=== PATIENT | male | born 1980 | race Caucasian/White ===

== ENCOUNTER 2019-04-03 10:35 | Emergency (ER) | payer MEDICAID ==
--- NOTE | 2019-04-03 10:59 | ER Report ---
History and Physical Time Seen By MD: 10:53 Hx. of Stated Complaint: PATIENT REPORTS BLURRY VISION, RINGING IN THE EARS AND A HEADACHE. HAS BEEN OFF AND ON FOR A WHILE, BUT BECAME MUCH WORSE THIS MORNING HPI/ROS CHIEF COMPLAINT: Blurred vision and ringing in ears HISTORY OF PRESENT ILLNESS: This is a 38-year-old male who presents to the emergency department for blurred vision and ringing in ears. Patient states that he woke up this morning and had some blurry vision has had ringing in the ears bilaterally, also has a mild headache. No other visual disturbances. He is transient, currently backpacking around, he also states that he drank about a half gallon of vodka last night, blacked out. He does binge drink. He states he's had similar complaints before however he doesn't recall them being so intense. After further probing he did say that he may need some assistance with his alcohol consumption and withdrawals. He states he does drink on a semi- regular basis. Denies chest pain or shortness of breath. No rashes. No fevers or chills. REVIEW OF SYSTEMS: Constitutional: No fever, no chills. Eyes: As above. ENT: As above. Cardiovascular: No chest pain, no palpitations. Respiratory: No cough, no shortness of breath. Gastrointestinal: No abdominal pain, no vomiting. Genitourinary: No hematuria. Musculoskeletal: No back pain. Skin: No rashes. Neurological: As above. Allergies: Coded Allergies: No Known Drug Allergies (Unverified , 04/03/19) Past Medical/Surgical History The patient does have a past medical and surgical history of bipolar, anxiety, depression, alcohol dependence, liver disease, celiac disease. Reviewed Nurses Notes: Yes Hx Substance Use Disorder: Yes Hx Alcohol Use: Yes Constitutional Vital Sign - Last 24 Hours 04/03/19 04/03/19 04/03/19 10:38 12:23 13:25 Temp 97.9 Pulse 65 85 82 Resp 16 16 16 B/P (MAP) 131/104 142/101 (115) 132/92 (105) Pulse Ox 94 92 92 O2 Delivery Room Air Room Air Room Air Physical Exam General Appearance: The patient is alert, has no immediate need for airway protection and no signs of toxicity. Eyes: Pupils equal and round no pallor or injection. EOMs intact. No nystagmus. ENT, Mouth: Mucous membranes are moist. Respiratory: There are no retractions, lungs are clear to auscultation. Cardiovascular: Regular rate and rhythm. No murmurs, clicks or rubs. Gastrointestinal: Abdomen is soft and non tender, no masses, bowel sounds normal. Neurological: Alert and oriented 4. Moving all extremities. Following all commands. No focal neuro deficits. Skin: Warm and dry, no rashes. Musculoskeletal: Neck is supple non tender. Extremities are nontender, nonswollen and have full range of motion. DIFFERENTIAL DIAGNOSIS: After history and physical exam differential diagnosis was considered for alcohol withdrawal syndrome, tinnitus, intracranial bleed, tumor, anxiety. Medical Decision Making Data Points Result Diagram: 04/03/19 1047 04/03/19 1047 Laboratory Hematology Test 04/03/19 10:47 04/03/19 11:20 Red Blood Count 3.90 M/uL (4.00-5.60) Mean Corpuscular Volume 86.9 fL (80.0-96.0) Mean Corpuscular Hemoglobin 28.1 pg (26.0-33.0) Mean Corpuscular Hemoglobin Concent 32.3 g/dL (32.0-36.0) Red Cell Distribution Width 20.9 % (11.5-14.5) Mean Platelet Volume 7.7 fL (7.2-11.1) Neutrophils (%) (Auto) 54.0 % (39.4-72.5) Lymphocytes (%) (Auto) 29.3 % (17.6-49.6) Monocytes (%) (Auto) 14.9 % (4.1-12.4) Eosinophils (%) (Auto) 1.3 % (0.4-6.7) Basophils (%) (Auto) 0.5 % (0.3-1.4) Nucleated RBC Relative Count (auto) 0.1 /100WBC Neutrophils # (Auto) 3.1 K/uL (2.0-7.4) Lymphocytes # (Auto) 1.7 K/uL (1.3-3.6) Monocytes # (Auto) 0.9 K/uL (0.3-1.0) Eosinophils # (Auto) 0.1 K/uL (0.0-0.5) Basophils # (Auto) 0.0 K/uL (0.0-0.1) Nucleated RBC Absolute Count (auto) 0.00 K/uL Peripheral Blood Smear Y/N Sodium Level 139 mmol/L (137-145) Potassium Level 3.6 mmol/L (3.5-5.0) Chloride Level 108 mmol/L (98-107) Carbon Dioxide Level 20 mmol/L (22-30) Blood Urea Nitrogen 6 mg/dl (9-21) Creatinine 0.60 mg/dl (0.66-1.25) Glomerular Filtration Rate Calc > 60.0 Random Glucose 90 mg/dl (75-110) Calcium Level 8.0 mg/dl (8.4-10.2) Magnesium Level 1.4 mg/dl (1.7-2.2) Total Bilirubin 0.2 mg/dl (0.2-1.3) Aspartate Amino Transf (AST/SGOT) 108 U/L (0-35) Alanine Aminotransferase (ALT/SGPT) 98 U/L (0-56) Alkaline Phosphatase 114 U/L (0-126) Total Protein 7.6 g/dl (6.3-8.2) Albumin 3.7 g/dl (3.5-5.0) Salicylates Level < 10 mg/L Salicylate Last Dose Date unk Acetaminophen Level < 10 ug/ml Serum Alcohol < 10 mg/dl Urine Color Yellow Urine Clarity Clear Urine pH 5.0 pH (4.8-9.5) Urine Specific [place] 1.014 Urine Protein Negative mg/dL (NEGATIVE) Urine Glucose (UA) Negative mg/dL (NEGATIVE) Urine Ketones Negative mg/dL (NEGATIVE) Urine Blood Negative (NEGATIVE) Urine Nitrite Negative (NEGATIVE) Urine Bilirubin Negative (NEGATIVE) Urine Urobilinogen 2.0 mg/dL (0.2-1.9) Urine Leukocyte Esterase Negative (NEGATIVE) Urine RBC None /HPF (0-2/HPF) Urine WBC <1 /HPF (0-5/HPF) Urine Squamous Epithelial Cells None /LPF (</=FEW) Urine Bacteria Negative /HPF (NONE-FEW) Urine Mucus None /HPF (NONE-FEW) Urine Opiates Screen Negative Urine Barbiturates Screen Negative Ur Tricyclic Antidepressants Screen Negative Urine Phencyclidine Screen Negative Urine Amphetamines Screen Negative Urine Benzodiazepines Screen Negative Urine Cocaine Screen Negative Urine Cannabinoids Screen Negative Chemistry Test 04/03/19 10:47 04/03/19 11:20 White Blood Count 5.7 k/uL (4.5-11.0) Red Blood Count 3.90 M/uL (4.00-5.60) Hemoglobin 11.0 g/dL (14.0-18.0) Hematocrit 33.9 % (42.0-52.0) Mean Corpuscular Volume 86.9 fL (80.0-96.0) Mean Corpuscular Hemoglobin 28.1 pg (26.0-33.0) Mean Corpuscular Hemoglobin Concent 32.3 g/dL (32.0-36.0) Red Cell Distribution Width 20.9 % (11.5-14.5) Platelet Count 338 K/uL (150-450) Mean Platelet Volume 7.7 fL (7.2-11.1) Neutrophils (%) (Auto) 54.0 % (39.4-72.5) Lymphocytes (%) (Auto) 29.3 % (17.6-49.6) Monocytes (%) (Auto) 14.9 % (4.1-12.4) Eosinophils (%) (Auto) 1.3 % (0.4-6.7) Basophils (%) (Auto) 0.5 % (0.3-1.4) Nucleated RBC Relative Count (auto) 0.1 /100WBC Neutrophils # (Auto) 3.1 K/uL (2.0-7.4) Lymphocytes # (Auto) 1.7 K/uL (1.3-3.6) Monocytes # (Auto) 0.9 K/uL (0.3-1.0) Eosinophils # (Auto) 0.1 K/uL (0.0-0.5) Basophils # (Auto) 0.0 K/uL (0.0-0.1) Nucleated RBC Absolute Count (auto) 0.00 K/uL Peripheral Blood Smear Y/N Glomerular Filtration Rate Calc > 60.0 Calcium Level 8.0 mg/dl (8.4-10.2) Magnesium Level 1.4 mg/dl (1.7-2.2) Total Bilirubin 0.2 mg/dl (0.2-1.3) Aspartate Amino Transf (AST/SGOT) 108 U/L (0-35) Alanine Aminotransferase (ALT/SGPT) 98 U/L (0-56) Alkaline Phosphatase 114 U/L (0-126) Total Protein 7.6 g/dl (6.3-8.2) Albumin 3.7 g/dl (3.5-5.0) Salicylates Level < 10 mg/L Salicylate Last Dose Date unk Acetaminophen Level < 10 ug/ml Serum Alcohol < 10 mg/dl Urine Color Yellow Urine Clarity Clear Urine pH 5.0 pH (4.8-9.5) Urine Specific [place] 1.014 Urine Protein Negative mg/dL (NEGATIVE) Urine Glucose (UA) Negative mg/dL (NEGATIVE) Urine Ketones Negative mg/dL (NEGATIVE) Urine Blood Negative (NEGATIVE) Urine Nitrite Negative (NEGATIVE) Urine Bilirubin Negative (NEGATIVE) Urine Urobilinogen 2.0 mg/dL (0.2-1.9) Urine Leukocyte Esterase Negative (NEGATIVE) Urine RBC None /HPF (0-2/HPF) Urine WBC <1 /HPF (0-5/HPF) Urine Squamous Epithelial Cells None /LPF (</=FEW) Urine Bacteria Negative /HPF (NONE-FEW) Urine Mucus None /HPF (NONE-FEW) Urine Opiates Screen Negative Urine Barbiturates Screen Negative Ur Tricyclic Antidepressants Screen Negative Urine Phencyclidine Screen Negative Urine Amphetamines Screen Negative Urine Benzodiazepines Screen Negative Urine Cocaine Screen Negative Urine Cannabinoids Screen Negative Toxicology Test 04/03/19 10:47 04/03/19 11:20 Salicylates Level < 10 mg/L Salicylate Last Dose Date unk Acetaminophen Level < 10 ug/ml Serum Alcohol < 10 mg/dl Urine Opiates Screen Negative Urine Barbiturates Screen Negative Ur Tricyclic Antidepressants Screen Negative Urine Phencyclidine Screen Negative Urine Amphetamines Screen Negative Urine Benzodiazepines Screen Negative Urine Cocaine Screen Negative Urine Cannabinoids Screen Negative Urinalysis Test 04/03/19 11:20 Urine Color Yellow Urine Clarity Clear Urine pH 5.0 pH (4.8-9.5) Urine Specific [place] 1.014 Urine Protein Negative mg/dL (NEGATIVE) Urine Glucose (UA) Negative mg/dL (NEGATIVE) Urine Ketones Negative mg/dL (NEGATIVE) Urine Blood Negative (NEGATIVE) Urine Nitrite Negative (NEGATIVE) Urine Bilirubin Negative (NEGATIVE) Urine Urobilinogen 2.0 mg/dL (0.2-1.9) Urine Leukocyte Esterase Negative (NEGATIVE) Urine RBC None /HPF (0-2/HPF) Urine WBC <1 /HPF (0-5/HPF) Urine Squamous Epithelial Cells None /LPF (</=FEW) Urine Bacteria Negative /HPF (NONE-FEW) Urine Mucus None /HPF (NONE-FEW) ED Course/Re-evaluation Clinical Indication for ER IV: Hydration, IV Access ED Course The patient was admitted to a room. His drug physical obtained. Differential diagnoses were considered. An IV was started. A CBC, CMP, psych panel were obtained. UA and toxicology screen were obtained. H&H 11.0 and 33.9, negative UA, negative tox screen. Patient was evaluated by [facility], patient declined admission. I reviewed the laboratory studies with the patient, he stated that the liver enzymes have improved as compared to his previous liver enzymes. He states he is feeling better, we did have a lengthy discussion on how call consumption complicating his disease process, he expected understanding and was discharged home. 04/03/2019 12:28:19 pm [facility] did evaluate and offered admissi on to the patient, however the patient has declined. I did return and speak with patient, I did review the laboratory studies, as of note, the patient's normal saline was turned off, I did turn it back on. The patient I did discuss well- balanced diet for celiac disease, in addition to not drinking alcohol as this can cause delirium. Patient expressed understanding. Decision to Disposition Date: Apr 03, 2019 Decision to Disposition Time: 12:25 Depart Departure Latest Vital Signs Vital Signs Date Time Temp Pulse Resp B/P (MAP) Pulse Ox O2 Delivery O2 Flow Rate FiO2 04/03/19 13:25 82 16 132/92 (105) 92 Room Air 04/03/19 10:38 97.9 Impression: Primary Impression: Alcohol dependence with perceptual disturbance Additional Impressions: Alcohol dependence with physiological dependence, episodic Elevated blood pressure reading without diagnosis of hypertension Condition: Improved Disposition: HOME OR SELF-CARE Referrals: Alcoholics [facility] Patient Instructions: Alcohol Dependence (ED), Celiac Disease (ED) Additional Instructions: Please try to follow up with one of the treatment centers on the paperwork that we have provided, I do feel that your symptoms today are secondary to your binge drinking and possibly mal-absorption of food. Try to adjust your diet to accommodate your celiac disease, alcohol will complicate the disease process. Drink plenty of water. Get plenty of rest. If you have a provider you have worked with in the past, in [place], please consider followup within the next 1-2 weeks. Return to the ED for any other concerns or worsening symptoms. Problem Qualifiers CHRISTOPH HAGAN [employer] Apr 03, 2019 10:59
[2019-04-03] MEDS ORDERED: NS(*) 0.9% 1000 ML BAG 1,000 ML IV ONE (11:11)
[2019-04-03 11:24] LABS: PLATELET COUNT, AUTOMATED 338 K/uL (150-450)
[2019-04-03 13:25] VITALS: BP 132/92
== END 2019-04-03 13:31 | disposition home or self-care (01) ==
LOC: ER 10:58
DX: F10.20 Alcohol dependence, uncomplicated (principal); R03.0 Elevated blood-pressure reading, without diagnosis of hypertension
CPT/HCPCS: 80305; 81001; 83735; 84443; 85025; 96360; 99283; G0480; J7030; 80320; 80329; 82040; 82247; 82310; 82374; 82435; 82565; 82947; 84075; 84132; 84155; 84295; 84450; 84460; 84520